=== PATIENT | male | born 1995 | race Caucasian/White ===

== ENCOUNTER 2019-01-25 13:27 | Emergency (ER) | payer SELFPAY ==
[2019-01-25 14:03] VITALS: BP 128/77; PULSE 92; RESP 16; TEMP 98; O2SAT 96
--- NOTE | 2019-01-25 15:21 | ED PDOC ---
Lower Extremity Pain/Injury Time Seen by Provider: 01/25/19 14:15 Chief Complaint (Nursing): Lower Extremity Problem/Injury Chief Complaint (Provider): left ankle pain History Per: Patient History/Exam Limitations: no limitations Additional Complaint(s): 23 y/o M w/ no PMH who presents with left ankle pain after injury while playing basketball yesterday. Pt stepped on another player's foot and twisted ankle in. He iced it but was unable to bear weight since this morning. He has not taken anything for pain. Denies numbness or tingling. Past Medical History Reviewed: Historical Data, Nursing Documentation, Vital Signs Vital Signs: Last Vital Signs Temp 98.0 F 01/25/19 14:01 Pulse 92 H 01/25/19 14:01 Resp 16 01/25/19 14:01 BP 128/77 01/25/19 14:01 Pulse Ox 96 01/25/19 14:01 Primary Care Provider: FAMILY PROVIDER,NO - Medical History PMH: No Chronic Diseases - Family History Family History: States: Unknown Family Hx - Immunization History Hx Tetanus Toxoid Vaccination: Yes Hx Influenza Vaccination: Yes Hx Pneumococcal Vaccination: No - Home Medications Home Medications: Ambulatory Orders Medication Instructions Recorded Ibuprofen [Motrin Tab] 800 mg PO Q6 PRN 7 Days tab 01/25/19 - Allergies Allergies/Adverse Reactions: Allergies Allergy/AdvReac Type Severity Reaction Status Date / Time No Known Allergies Allergy Verified 01/25/19 14:00 Review of Systems Musculoskeletal: Positive for: Foot Pain (ankle pain) Neurological: Negative for: Weakness, Numbness Physical Exam - Reviewed Nursing Documentation Reviewed: Yes Vital Signs Reviewed: Yes - Physical Exam Appears: Positive for: Uncomfortable Extremity: Positive for: Tenderness (on palpation of lateral malleolus), Capillary Refill (< 2 sec), Swelling (left ankle at lateral malleolus). Negative for: Normal ROM (mildly decreased ROM with flexion and extension of left ankle, normal flexion and extension of Left knee and toes. ), Deformity Neurological/Psych: Positive for: Awake, Alert, Oriented - ECG O2 Sat by Pulse Oximetry: 96 Medical Decision Making Medical Decision Making: Left ankle x-ray Ibuprofen 600mg PO x 1 Ice Left ankle x-ray: FINDINGS: BONES: Bone alignment and mineralization are normal. There is no acute displaced fracture or bone destruction. JOINTS: The joint spaces are preserved. Ankle mortise maintained. Talar dome intact SOFT TISSUES: There is moderate lateral soft tissue swelling. OTHER FINDINGS: There is a small joint effusion. IMPRESSION: No acute displaced fracture or dislocation. Small joint effusion. Moderate lateral soft tissue swelling. Re-evaluated: pain has improved somewhat. Pt advised to take Ibuprofen and Rest/ice/compress/elevate for at least the next 24hrs Disposition - Clinical Impression Clinical Impression: Ankle sprain - Patient ED Disposition Is Patient to be Admitted: No Counseled Patient/Family Regarding: Studies Performed, Diagnosis, Rx Given - Disposition Referrals: Podiatry Clinic [Outside] Disposition: Routine/Home Disposition Time: 16:15 Condition: STABLE Additional Instructions: Follow up with Podiatry if your pain does not improve in 48hrs. Elevate your ankle, rest, ice it for the next 24hrs 20min every 6hrs. Use air cast and crutches until able to bear weight. Prescriptions: Ibuprofen [Motrin Tab] 800 mg PO Q6 PRN 7 Days tab PRN Reason: Pain, Moderate (4-7) Instructions: Ankle Sprain (DC) Forms: [employer] ([place]) Print Language: [place]
--- NOTE | 2019-01-25 16:00 | RAD ---
Date of service: 01/25/2019 PROCEDURE: Left Ankle Radiographs. HISTORY: s/p inversion injury, + swelling COMPARISON: None available. TECHNIQUE: 3 views obtained. FINDINGS: BONES: Bone alignment and mineralization are normal. There is no acute displaced fracture or bone destruction. JOINTS: The joint spaces are preserved. Ankle mortise maintained. Talar dome intact SOFT TISSUES: There is moderate lateral soft tissue swelling. OTHER FINDINGS: There is a small joint effusion. IMPRESSION: No acute displaced fracture or dislocation. Small joint effusion. Moderate lateral soft tissue swelling.
== END 2019-01-25 16:36 | disposition home or self-care (01) ==
LOC: H.ER 13:27
DX: S93.402A Sprain of unspecified ligament of left ankle, initial encounter (principal); X50.9XXA Other and unspecified overexertion or strenuous movements or postures, initial encounter; Y92.310 Basketball court as the place of occurrence of the external cause